=== PATIENT | female | born 1995 | race Caucasian/White ===

== ENCOUNTER 2019-12-10 17:48 | Emergency (ER) | payer OTHER ==
[~2019-12-10] VITALS: Ht 172.7 cm; Wt 64.4 kg
[2019-12-10] MEDS ORDERED: LEXAPRO20 MG (17:56)
[2019-12-10] MEDS ORDERED: KETO10TA2 PO (21:19)
== END 2019-12-10 21:29 | disposition home or self-care (01) ==
LOC: ER 17:48
DX: S50.12XA Contusion of left forearm, initial encounter (principal); W18.39XA Other fall on same level, initial encounter; Y93.89 Activity, other specified; Y92.488 Other paved roadways as the place of occurrence of the external cause; Y99.8 Other external cause status